=== PATIENT | male | born 1960 | race African-American/Black ===

== ENCOUNTER → 2023-09-19 00:46 | Outpatient (CLI) | payer OTHER, SELFPAY ==
--- NOTE | 2023-09-19 | DI.RAD_ITS ---
Exam(s) XR KNEE RT 2V AP,LAT EXAM: XR KNEE RT 2V AP,LAT CLINICAL HISTORY: [place] AUTH# [id number] PAIN RT KNEE M25.561. TECHNIQUE: 2D digital imaging was performed. COMPARISON: No exams were available for comparison FINDINGS: Two views. No evidence of acute fracture. Joint effusion noted and there is a calcified loose body within the s uprapatellar joint effusion. There is advanced narrowing of the medial compartment of the knee and marginal osteophytes off the me dial compartment. Minimal narrowing of the lateral compartment noted. There is narrowing of the pat ellofemoral compartment also noted. No osseous lesions. IMPRESSION: Advanced degenerative changes in the medial compartment. 7 millimeter calcified body in the suprapatellar joint effusion noted. DATA REPOSITORY: RADIATION DOSE DELIVERED:
== END ==
PROVIDERS: Visit Provider Internal Medicine
DX: M17.11 Unilateral primary osteoarthritis, right knee (principal)
CPT/HCPCS: 73560

== ENCOUNTER 2024-06-15 22:11 | Emergency (ER) | payer OTHER, SELFPAY ==
[2024-06-15] VITALS (9 sets, daily range): BP systolic 140–179; BP diastolic 76–90; PULSE 66–88; RESP 19–24; TEMP 36.8; O2SAT 93–99
--- NOTE | 2024-06-15 22:00 | RT.EKG_ITS ---
APPROVED REPORT Exam: Resting ECG Reason for Exam: SOB Patient Location: E HR:79 bpm ECG Measurements Heart Rate 79 AXIS MN 149 P 52 QRSd 79 QRS -5 QT 354 T 37 QTc 406 Conclusion Sinus rhythm...normal P axis, V-rate 60- [address] segment or T wave abnormalities to suggest occlusive CT
--- NOTE | 2024-06-15 22:30 | DI.RAD_ITS ---
Exam(s) XR CHEST 2V PA LATERAL EXAM: XR CHEST 2V PA LATERAL CLINICAL HISTORY: SOB TECHNIQUE: 2D digital imaging was performed of the chest. Two images were obtained. PA and lateral views were obtained. COMPARISON: CR PORTABLE CHEST ONE VIEW from 08/05/2015 FINDINGS: MEDIASTINUM: Normal. HEART: Normal. PULMONARY VASCULATURE: Normal. LUNGS: Clear. PLEURAL SPACE: No pleural effusion or pneumothorax. BONE:Within normal limits for the patient's age. OTHER FINDINGS:Normal. IMPRESSION: No acute pulmonary findings. DATA REPOSITORY: RADIATION DOSE DELIVERED:
--- NOTE | 2024-06-15 22:38 | ED.GENADUL_ITS ---
Discharge Plan Disposition Patient Disposition: Home Condition: Good Discharge Details Clinical Impression: Asthma Primary Care Provider: Unknown,Unknown ED Provider: Veronica Adan Home Meds and New Rx's Prescriptions: Continued amlodipine [Norvasc] 5 MG tablet 10 mg PO QAM omeprazole 20 MG capsule,delayed release(DR/EC) 20 mg PO QAM albuterol sulfate 8.5 GM HFA aerosol inhaler 1 inh . PRN PRN nicotine 14 MG/24 HR patch 24 hour 14 mg Transdermal DAILY PRN PRNQty: 30 0RF cilostazol 50 MG tablet 1 tab PO BID aspirin [Aspir-81] 81 MG tablet,delayed release (DR/EC) 1 tab PO DAILY indomethacin 50 MG capsule 50 mg PO TID PRN PRN naproxen 500 MG tablet 500 mg PO BID PRN PRN rosuvastatin [Crestor] 40 MG tablet 40 mg PO DAILY Zyrtec 10 MG capsule 10 mg PO DAILY hydrochlorothiazide 12.5 mg capsule 12.5 mg PO DAILY colchicine 0.6 mg capsule 0.6 mg PO DAILY Discontinued lisinopril-hydrochlorothiazide 1 EACH tablet 1 tab PO QAM Patient Comments: hasnt taken in 1 month - recently changed by pcp Discharge Instructions Instructions: Asthma, Adult ED Additional Instructions: Take the dexamethasone 8mg by mouth tomorrow morning when you wake up. Use your albuterol inhaler 2 puffs up to every 4 hours as needed for shortness of breath. Call your primary care doctor in the morning to schedule an appointment for within the next 72 hours to followup on your visit here. Return to the emergency department for new or worsening symptoms including if your breathing worsens again, you develop chest pain, feel like you are going to pass out, or if you have any other concerns. HPI General Mode of arrival: ambulatory . Date/Time Provider Initiated Documentation: 06/15/24 22:12 . Limitations to Documentation: no limitations . Information obtained by: patient . HPI Narrative: 64yo M with hx HTN, CKD, asthma, presenting for shortness of breath. Had influenza about two weeks ago. Was starting to feel better, then 2-3 days ago began to have worsening shortness of breath and increasing cough. Breathing feels tight. Has not used albuterol for quite some time and does not currently have an inhaler. Nothing seems to make symptoms better or worse. No chest pain, pleurtic pain, LE edema, presyncope, or syncope. He is otherwise in his usual state of health with no fevers, chills, rash, nausea, vomiting, or other concerns. Related Data Home Medications ?Medication ?Instructions ?Recorded ?Confirmed albuterol sulfate 90 mcg/actuation 1 inh . PRN PRN 09/19/14 06/15/24 aerosol inhaler amlodipine 5 mg tablet (Norvasc) 10 mg PO QAM 09/19/14 06/15/24 omeprazole 20 mg capsule,delayed 20 mg PO QAM 09/19/14 06/15/24 release nicotine 14 mg/24 hr daily 14 mg transdermal DAILY PRN PRN 08/06/15 06/15/24 transdermal patch ##30 aspirin 81 mg tablet,delayed 1 tab PO DAILY 10/01/15 06/15/24 release (Aspir-) cetirizine 10 mg capsule (Zyrtec) 10 mg PO DAILY 10/01/15 06/15/24 cilostazol 50 mg tablet 1 tab PO BID 10/01/15 06/15/24 indomethacin 50 mg capsule 50 mg PO TID PRN PRN 10/01/15 06/15/24 naproxen 500 mg tablet 500 mg PO BID PRN PRN 10/01/15 06/15/24 rosuvastatin 40 mg tablet (Crestor) 40 mg PO DAILY 10/01/15 06/15/24 colchicine 0.6 mg capsule 0.6 mg PO DAILY 06/15/24 06/15/24 hydrochlorothiazide 12.5 mg capsule 12.5 mg PO DAILY 06/15/24 06/15/24 Previous Rx's ?Medication ?Instructions ?Recorded nicotine 14 mg/24 hr daily 14 mg transdermal DAILY PRN PRN 08/06/15 transdermal patch ##30 Allergies Allergy/AdvReac Type Severity Reaction Status Date / Time ibuprofen AdvReac Severe Unknown Verified 06/15/24 22:30 General Stated Complaint: RespSymp LINDA: 3 Review of Systems Narrative: see HPI Exam Narrative Exam Narrative: General: Alert, non-toxic Head: Normocephalic, atraumatic Neck: Trachea midline, ?Neck supple. ENT: ?MMM.? No oropharygeal lesions or exudate. Cardiac: ?RRR, no murmurs appreciated Resp: Diffuse expiratory wheeze. Speaking in 4-5 word sentences. No retractions. Abd: ?Soft, non-distended, nontender Extremities: ?No deformities.? No peripheral edema. Neurologic: GCS 15. ? Moves all extremities freely against gravity Course Vital Signs Vital signs: Vital Signs Temperature 36.8 C 06/15/24 22:14 Pulse 87 06/15/24 22:14 Respiratory Rate 19 06/15/24 22:14 Blood Pressure 179/90 H 06/15/24 22:14 Pulse Oximetry 99 06/15/24 22:14 Temperature 36.8 C 06/15/24 22:27 Temperature Source Temporal Artery Scan 06/15/24 22:27 Pulse 88 06/15/24 22:27 Respiratory Rate 24 06/15/24 22:27 Respiratory Effort Short of Breath 06/15/24 22:27 Respiratory Depth Normal 06/15/24 22:27 Blood Pressure 179/90 H 06/15/24 22:14 Blood Pressure Position Sitting 06/15/24 22:14 Pulse Oximetry 98 06/15/24 22:27 Oxygen Delivery Method Room Air 06/15/24 22:27 Oxygen Flow Rate 0 06/15/24 22:14 Pain Level 0 06/15/24 22:14 Medical Decision Making 64yo M with hx HTN, CKD, asthma, presenting for shortness of breath. Had influenza about two weeks ago, was starting to feel better, then 2-3 days ago began to have worsening shortness of breath and increasing cough. Does not have a history of COPD but was a smoker. Hypertensive on arrival, vital signs ot herwise reassuring, afebrile. Expiratory wheeze on exam. Not overtly septic. Not suggestive of pulmonary embolism. Will treat presumptively for asthma exacerbation with albuterol while awaiting results of workup. EKG NSR, appropriate intervals, no ST segment or T wave abnormalitites to suggest occlusive ND. CXR independently reviewed; no focal pneumonia or pneumothorax on my view, radiology read with no acute findings. Labs reviewed as below, CBC reassuring with no leukoctyosis or anemia, CMP with no actionable abnormalities, VBG reassuring with no acidosis or significant CO2 retention, BNP not suggestive of heart failure, troponin normal x 2 (would not further pursue ACS/trend troponin/etc). On reassessment his breath sounds have improved but he remains subjectively dyspneic. Will add methylprednisolone and 2 duonebs. On subsequent reassessment he reports feeling much improved. Will send home with dose of dexamethasone for the morning and albuterol inhaler. Discharged ho me to followup with PCP; discharge instructions and return precautions were reviewed with patient who verbalized understanding. All questions were answered and he is in full agreement with the plan. Imaging Data Radiologic Study: Imaging: X-Ray Radiologist's impression: IMPRESSION: No acute findings. Lab Data Lab results reviewed: Yes I reviewed the patient's lab results. Labs: Laboratory Tests Range/Units 06/15/24 06/15/24 06/16/24 22:50 23:54 01:37 WBC (4.4-10.8) 10^3/uL 8.99 RBC (4.36-5.78) 10^6/uL 4.84 Hgb (13.5-17.5) g/dL 14.0 Hct (40.0-50.0) % 43.6 MCV (80-95) fL 90 MCH (27.0-33.0) pg 28.9 MCHC (32.0-36.0) % 32.1 RDW (11.8-14.1) % 15.0 H Plt Count (130-400) 10^3/uL 275 MPV (8.0-11.0) fL 10.3 Immature Gran % % 0.2 Neutrophils % % 43.5 Lymphocytes % % 40.5 Monocytes % % 11.0 Eosinophils % % 3.9 Basophils % % 0.9 Nucleated RBC % (0.0-0.3) % 0.0 Absolute Neutrophils (1.2-6.7) 10^3/uL 3.91 Absolute Lymphocytes (1.2-3.4) 10^3/uL 3.64 H Absolute Monocytes (0.1-0.8) 10^3/uL 0.99 H Absolute Eosinophils (0.0-0.7) 10^3/uL 0.35 Absolute Basophils (0.0-0.2) 10^3/uL 0.08 VBG pH (7.31-7.41) 7.37 VBG pCO2 (41-51) mmHg 51 VBG pO2 mmHg 44 VBG HCO3 (23-28) mmol/L 30 H VBG Total CO2 (24-29) mmol/L 27 VBG O2 Saturation % 80 VBG Base Excess (-2-3) mmol/L 4 H Sodium (136-145) mmol/L 140 Potassium (3.5-5.1) mmol/L 4.8 Chloride (98-107) mmol/L 104 Carbon Dioxide (21.0-32.0) mmol/L 30.6 Anion Gap (3-11) mmol/L 5.4 BUN (7-18) mg/dL 20 H Creatinine (0.70-1.30) mg/dL 1.6 H Est GFR (CKD-EPI 2020) (mL/min/1.73m2) 47.52 Glucose (74-106) mg/dL 113 H Calcium (8.5-10.1) mg/dL 9.2 Total Bilirubin (0.2-1.0) mg/dL 0.3 AST (15-37) U/L 29 ALT (16-63) U/L 39 Alkaline Phosphatase (46-116) U/L 60 Troponin I (<or=76) ng/L 9 9 Cancelled NT-Pro-B Natriuret Pep (<300) pg/mL 28 Total Protein (6.4-8.2) g/dL 8.0 Albumin (3.4-5.0) g/dL 3.4 Quality:SDOH Health Related Social Needs: No Data to Display PFSH All Active Problems (Updated 06/16/24 @ 01:36 by Veronica Adan MD) Asthma (Chronic) Hypomagnesemia (Chronic) Chronic kidney disease, stage III (moderate) (Chronic) Issue of medical certificate for disability examination (Chronic) H/O surgical procedure (Chronic) a. left TKR 2005 b. left forearm laceration multiple years ago Hypertension (Chronic) LORENE (obstructive sleep apnea) (Chronic) a. CPAP machine that he cannot tolerate and he is giong back to get a different mask Chest pain, rule out acute myocardial infarction (Acute 08/05/15) Episode of syncope (Acute 08/05/15) Social History Smoking/Tobacco Use Status: Current every day Smoking risk assessment performed?: Yes Alcohol Intake: former Drug use: Daily Substance use type: marijuana Housing: house Do you feel safe at home: Yes Do you feel safe in your relationship?: Yes
[2024-06-15 22:54] LABS: BE (Venous) 4 mmol/L (-2-3); HCO3 (Venous) 30 mmol/L (23-28); O2 Sat (Venous) 80 %; TCO2 (Venous) 27 mmol/L (24-29); pCO2 (Venous) 51 mmHg (41-51); pH (Venous) 7.37 (7.31-7.41); pO2 (Venous) 44 mmHg
[2024-06-15 22:57] LABS: Abs Immature Grans 0.02 10^3/uL (0.0-0.06); Absolute Basophil Count 0.08 10^3/uL (0.0-0.2); Absolute Eosinophil Count 0.35 10^3/uL (0.0-0.7); Absolute Lymphocyte Count 3.64 10^3/uL (1.2-3.4); Absolute Monocyte Count 0.99 10^3/uL (0.1-0.8); Absolute Neutrophil Count 3.91 10^3/uL (1.2-6.7); Basophils % 0.9 %; Eosinophils % 3.9 %; HCT 43.6 % (40.0-50.0); Immature Grans % 0.2 %; Lymphocytes % 40.5 %; MCH 28.9 pg (27.0-33.0); MCHC 32.1 % (32.0-36.0); MCV 90 fL (80-95); MPV 10.3 fL (8.0-11.0); Neutrophils % 43.5 %; Platelet Count 275 10^3/uL (130-400); RBC 4.84 10^6/uL (4.36-5.78); RDW-SD 49.1 fL; WBC 8.99 10^3/uL (4.4-10.8)
[2024-06-15] MEDS: Albuterol 2.5 MG/3 ML INH SOLN VIAL UPD (22:57)
[2024-06-15 23:19] LABS: ALT 39 U/L (16-63); AST 29 U/L (15-37); Albumin 3.4 g/dL (3.4-5.0); Alkaline Phosphatase 60 U/L (46-116); Anion Gap 5.4 mmol/L (3-11); BUN 20 mg/dL (7-18); Bilirubin, Total 0.3 mg/dL (0.2-1.0); CO2 30.6 mmol/L (21.0-32.0); CREATININE 1.6 mg/dL (0.70-1.30); Calcium 9.2 mg/dL (8.5-10.1); Chloride 104 mmol/L (98-107); Estimated GFR 47.52 (mL/min/1.73m2); Glucose 113 mg/dL (74-106); NT-proBNP 28 pg/mL (<300); Potassium 4.8 mmol/L (3.5-5.1); Sodium 140 mmol/L (136-145); Troponin I 9 ng/L (<or=76)
--- NOTE | 2024-06-15 23:36 | DI.VRAD_ITS ---
PROCEDURE INFORMATION: Exam: XR Chest Exam date and time: 06/15/2024 11:05 PM Age: 64 years old Clinical indication: Shortness of breath; SOB TECHNIQUE: Imaging protocol: Radiologic exam of the chest. Views: 2 views. COMPARISON: No relevant prior studies available. FINDINGS: Lungs: Unremarkable. No consolidation. Pleural spaces: Unremarkable. No pleural effusion. No pneumothorax. Heart/Mediastinum: Unremarkable. No cardiomegaly. Bones/joints: Unremarkable. IMPRESSION: No acute findings. Dictated and Authenticated by: Abiel Mcclain MD. Orderin Loco Martin MD
[2024-06-16] VITALS (15 sets, daily range): BP systolic 129–145; BP diastolic 72–74; PULSE 63–85; RESP 16; TEMP 36.6; O2SAT 92–100
[2024-06-16] MEDS: Albuterol/Ipratropium 3 ML UPD VIAL UPD ×2 (00:12→00:13)
[2024-06-16] MEDS: methylPREDNISolone SUCC 125 MG VIAL IVP (00:13)
[2024-06-16 00:17] LABS: Troponin I 9 ng/L (<or=76)
[2024-06-16] MEDS: Dexamethasone 4 MG TAB 8 MG PO (01:51)
[2024-06-16] MEDS: Albuterol HFA 8 GM 60 PUFF INH IH (01:51)
--- NOTE | 2024-06-17 09:26 | NUR.NOTE ---
Patient EKG was performed after time change. It is 1 hour off. Nursing Note:
== END 2024-06-16 01:44 | disposition home or self-care (01) ==
LOC: ER 06-16 01:58
PROVIDERS: Emergency Provider Student in an Organized Health Care Education/Training Program
DX: R06.02 Shortness of breath (principal); R05.9 Cough, unspecified; J45.909 Unspecified asthma, uncomplicated; I12.9 Hypertensive chronic kidney disease with stage 1 through stage 4 chronic kidney disease, or unspecified chronic kidney disease; N18.30 Chronic kidney disease, stage 3 unspecified; F17.210 Nicotine dependence, cigarettes, uncomplicated
CPT/HCPCS: 36415; 80053; 82805; 87426; 93005; 94640; 96374; 99285; 71046; 83880; 84484; 85025; 93010; J2919; J7613; J7620; J8540

== ENCOUNTER → 2025-03-25 00:21 | Outpatient (CLI) | payer OTHER, SELFPAY ==
--- NOTE | 2025-03-25 12:30 | DI.US_ITS ---
APPROVED REPORT EXAM: Comprehensive 2D, Doppler, and color-flow Echocardiogram Patient Location: Out-Patient [facility] [employer] Machine Operator: [facility] RDCS (AE) Indications: Dyspnea, Chronic ZHOU Other Information Study Quality: Fair. Technically limited study due to body habitus. Conclusion Normal left ventricular wall thickness and chamber size. Ejection fraction is 50 to 55%. There are no segmental wall motion abnormalities Normal right ventricular size and function Both atria are normal in size Trileaflet aortic valve with trace regurgitation Mitral annular calcification. Trace to mild mitral regurgitation Wall motion Left Ventricle The left ventricle is normal size. The overall left ventricular systolic function appears within normal range There is normal left ventricular wall thickness. There is no ventricular septal defect visualized. LVEF is 50-55%. Right Ventricle Right ventricle is grossly normal in size. Right ventricular systolic function is grossly normal. Atria The left atrium size is normal. The right atrium size is normal. The interatrial septum is intact with no evidence for an atrial septal defect. Aortic Valve The aortic valve is normal in structure. Aortic valve is trileaflet. There is no aortic valvular stenosis. Trace aortic regurgitation. Mitral Valve Mild mitral annular calcification. No evidence of mitral valve stenosis. Trace to mild mitral regurgitation. Tricuspid Valve The tricuspid valve is normal in structure. There is no tricuspid valve stenosis. Trace tricuspid regurgitation. Unable to assess PA pressure. Pulmonic Valve The pulmonary valve is normal in structure. There is no pulmonic valvular stenosis. There is no pulmonic valvular regurgitation. Great Vessels The aortic root is normal in size. The ascending aorta is normal in size. Aortic arch is normal in caliber. IVC is normal in size and collapses >50% with inspiration. Pericardium There is no pericardial effusion. 2D Dimensions IVSD d PLAX 1.20 cm M: 0.6-1.2 Ao Root d 2.55 cm M: 3.1 - 3.7 LVPW d PLAX 1.20 cm M: 0.6 - 1.2 Ao Asc Diam d 3.20 cm M: 2.6 - 3.4 LVID d PLAX 5.01 cm M: 4.2 - 5.8 LVDs 3.72 cm M: 2.5 - 4.0 LV EF Teichholz 50.4 % FS 25.75 % LV EDV (Teich) 118.5 mL LV ESV (Teich) 58.8 mL M-Mode TAPSE 1.85 cm (M/F) >1.7 Auto EF LV EDV A4C 153.3 mL LV EDV A2C 195.1 mL LV EDV BP 178.4 mL LV ESV A4C 74.9 mL LV ESV A2C 98.0 mL LV ESV BP 87.9 mL LVEF(%) A4C 51.1 % LVEF(%) A2C 49.8 % LVEF(%) BP 50.7 % LV SV A4C 78.4 ml LV SV A2C 97.1 ml LV SV BP 90.5 ml LV CO A4C 5.6 L/min LV CO A2C 7.1 L/min LV CO BP 6.3 L/min HR A4C 71.58 BPM HR A2C 72.58 BPM LV EDV Index (BP) LA Volume LA Length A4C 5.0 cm LA Length A2C 5.0 cm LA Area A4C s 15.16 cm2 LA Area A2C s 21.14 cm2 LA Vol A4C A-L 39.01 mL LA Vol A2C A-L 75.80 mL LA Vol Biplane A-L 54.4 mL LA Vol/BSA A4C A-L LA Vol/BSA A2C A-L LA Vol/BSA BP A-L 22.2 mL/m2 LA Vol A4C MOD 35.8 mL LA Vol A2C MOD 70.0 mL LA Vol BP MOD 49.6 mL RA Volume RA Area A4C 9.7 cm2 RA ESV A4C (A-L) 21.0mL RA Vol/BSA A4C A-L RA Length A4C 3.8 cm RA ESV A4C (MOD) 20.3mL LV Diastology MV E' medial 0.077 (>0.07 m/s) MV E Vmax 0.83 (0.4-1.3 m/s) MV E/E' MED 10.79 (<14) MV A Vmax 1.00 (0.4-1.3 m/s) MV E' lateral 0.097 (>0.1 m/s) E/A Ratio 0.8 MV E/E' LAT 8.51 (<14) MV E' Average 0.087 m/s MV E/E'(average) 9.51 Aortic Valve AoV Vmax 1.59 m/s LVOT Vmax 1.22 m/s AoV Peak Grad 10.1 mmHg LVOT Peak Grad 6.0 mmHg AoV Area (Vmax) 2.60 cm2 LVOT VTI 0.247 m AoV VTI 0.342 m LVOT Mean Grad 3.4 mmHg AoV Mean Bridger. 1.10 m/s LVOT SV 83.53 mL AoV Mean Grad 5.5 mmHg LVOT Diam s 2.05 cm AoV Area (VTI) 2.44 cm2 AV Regurg Peak Gr. 10.10 mmHg Velocity Ratio 0.77 Mitral Valve MV DT 251 (160-240 msec) MV Vmax TIPS 0.92 m/s MV Mean Grad 1.6 (<2mmHg) MV VTI 0.321 m Pulmonary Valve PV Vmax 1.11 (0.5-1.5 m/s) RVOT Vmax 0.81 m/s PV Peak Grad 5.0 mmHg RVOT Peak Gr. 2.6 mmHg PV Mean Bridger 0.76 m/s RVOT VTI 0.180 m PV Mean Grad 2.7 mmHg RVOT Mean Gr. 1.6 mmHg Tricuspid Valve TV S' 0.17 m/s
== END ==
PROVIDERS: PCP Nurse Practitioner; Visit Provider Nurse Practitioner
DX: R06.09 Other forms of dyspnea (principal); I35.1 Nonrheumatic aortic (valve) insufficiency
CPT/HCPCS: 93306